=== PATIENT | male | born 1995 | race African-American/Black ===

== ENCOUNTER 2023-09-28 08:59 | Emergency (ER) | payer OTHER ==
[~2023-09-28] VITALS: Ht 175.3 cm; Wt 68.0 kg
[2023-09-28] MEDS ORDERED: PEPCID AC10 MG PO (09:07)
[2023-09-28] MEDS ORDERED: ZOFRAN8 MG PO (09:07)
[2023-09-28] MEDS ORDERED: FAMOtidine 10 MG/ML (4ML VIAL) IV STA (09:28)
[2023-09-28] MEDS ORDERED: MEPERIDINE HCL 25 MG/ML AMPUL IV STA ×2 (09:30→11:58)
[2023-09-28] MEDS ORDERED: ONDANSETRON HCL 2 MG/ML VIAL IV ONE (09:30)
[2023-09-28] MEDS ORDERED: METOCLOPRAMIDE HCL 10 MG in 0.9 % SODIUM CHLORIDE 50 ML IV ONE (09:30)
[2023-09-28] MEDS ORDERED: 0.9 % SODIUM CHLORIDE 1,000 ML IV SCH (09:45)
[2023-09-28 10:34] LABS: ALBUMIN 4.3 gm/dL (3.4-5.0); BILIRUBIN TOTAL 1.28 mg/dL (0.3-1.2); BILIRUBIN,CONJUGATED 0.26 mg/dL (0.0-0.2); BILIRUBIN,UNCONJUGATED 1.02 mg/dL (0.0-0.6); CALCIUM 9.6 mg/dL (8.5-10.1); CREATININE SERUM 0.93 mg/dL (0.70-1.30); GFR 97.46; POTASSIUM 3.63 mEq/L (3.5-5.1); TOTAL PROTEIN 7.4 gm/dL (6.4-8.2)
[2023-09-28 10:36] LABS: HEMATOCRIT 41.2 % (39.0-48.0); HEMOGLOBIN 13.7 g/dL (13-16.00); MEAN CELL VOLUME 80.5 fL (80.0-100.00); MEAN CORPUSCULAR HEMOGLOBIN 26.7 pg (27.00-32.0); MEAN CORPUSCULAR HGB CONC 33.2 g/dl (32.0-36.0); PLATELET COUNT 149 K/uL (150-450); RED BLOOD COUNT 5.12 M/uL (4.00-6.00); RED CELL DISTRIBUTION WIDTH 15.1 % (11.5-14.5)
[2023-09-28] MEDS ORDERED: MEPERIDINE HCL/PF 50 MG/ML VIAL IM STA (12:29)
== END 2023-09-28 15:20 | disposition home or self-care (01) ==
LOC: ER 08:59
PROVIDERS: General Practice
DX: R10.84 Generalized abdominal pain (principal); Z88.8 Allergy status to other drugs, medicaments and biological substances